=== PATIENT | female | born 1955 | race Caucasian/White ===

== ENCOUNTER 2020-10-19 10:56 | Emergency (ER) | payer MEDICARE, MEDICAID ==
[~2020-10-19] VITALS: Ht 175.3 cm; Wt 55.1 kg
--- NOTE | 2020-10-19 11:17 | NUR ---
DAMIR RN: REFERRED BY [facility], ARRIVED VIA PRIVATE VEHICLE.
[2020-10-19] MEDS ORDERED: SODIUM CHLORIDE 0.9% 1,000ML IVBOLUS ONE (12:30)
[2020-10-19] MEDS ORDERED: SODIUM CHLORIDE FLUSH 10ML SYR IVF ONE (12:30)
[2020-10-19] MEDS ORDERED: ONDANSETRON 2MG/ML, 2ML IVPush ONE (12:30)
[2020-10-19 12:55] LABS: BASOPHILS % (AUTO) 1 % (0-1); EOSINOPHILS % (AUTO) 4 % (1-7); LYMPHOCYTES % (AUTO) 23 % (22-44); MEAN CORPUSCULAR HEMOGLOBIN 35.6 pg (27.0-34.8); MEAN CORPUSCULAR HGB CONC 34.3 g/dL (32.4-35.8); MEAN PLATELET VOLUME 9.6 fL (7.4-10.4); MONOCYTES % (AUTO) 20 % (2-9); NEUTROPHILS % (AUTO) 53 % (42-75); PLATELET COUNT 107 x10^3/uL (130-400); RED BLOOD COUNT 3.25 x10^6/uL (3.82-5.3)
--- NOTE | 2020-10-19 12:59 | NUR ---
FIRST CONTACT WITH PT, ASSUME CARE AT THIS TIME.
[2020-10-19] MEDS ORDERED: ONDANSETRON 2MG/ML, 2ML ONE (13:01)
[2020-10-19 13:02] LABS: ALANINE AMINOTRANSFERASE 46 U/L (12-78); ALBUMIN 3.2 g/dL (3.4-5.0); ANION GAP 11 mmol/L (5-15); CALCIUM 8.7 mg/dL (8.5-10.1); CHLORIDE 100 mmol/L (98-107)
[2020-10-19 13:05] LABS: ALKALINE PHOSPHATASE 82 U/L (45-117); BILIRUBIN,TOTAL 2.4 mg/dL (0.2-1.0); CREATININE 1.92 mg/dL (0.55-1.02); TOTAL PROTEIN 7.9 g/dL (6.4-8.2)
[2020-10-19 14:27] LABS: MICROSCOPIC INDICATED
--- NOTE | 2020-10-19 14:37 | NUR ---
REPORT FROM DALTON RN WITH ASSESSMENT NAUSEA/ABDOMINAL PAIN COMPLETELY RESOLVED POC CLARIFIED WITH PROVIDER/PATIENT -AWAITING CT RESULTS
[2020-10-19 16:10] VITALS: BP 145/76
== END 2020-10-19 16:13 | disposition home or self-care (01) ==
LOC: ED 14:27
DX: K80.20 Calculus of gallbladder without cholecystitis without obstruction (principal); K70.10 Alcoholic hepatitis without ascites; I12.9 Hypertensive chronic kidney disease with stage 1 through stage 4 chronic kidney disease, or unspecified chronic kidney disease; N18.9 Chronic kidney disease, unspecified; I77.1 Stricture of artery; R11.10 Vomiting, unspecified; F17.200 Nicotine dependence, unspecified, uncomplicated
CPT/HCPCS: 36415; 74176; 80053; 81001; 83605; 83690; 85025; 87086; 87106; 96361; 96374; 99284; J2405; J7030